=== PATIENT | female | born 1970 | race Caucasian/White ===

== ENCOUNTER → 2017-07-13 | Outpatient (CLI) | payer BC ==
[~2017-07-13] MED LIST: GADOBUTROL 10 MMOL/10 ML VIAL IV
== END | disposition home or self-care (01) ==
LOC: KCIC MRI 10:08
DX: S93.491A Sprain of other ligament of right ankle, initial encounter (principal); M79.89 Other specified soft tissue disorders; M25.471 Effusion, right ankle; X58.XXXA Exposure to other specified factors, initial encounter; Y93.89 Activity, other specified; Y92.89 Other specified places as the place of occurrence of the external cause; Y99.8 Other external cause status
CPT/HCPCS: 73721

== ENCOUNTER → 2018-06-07 | Outpatient (CLI) | payer BC ==
[2018-05-26 15:16] VITALS: BP 111/68
[~2018-06-07] MED LIST changes: +FENO145T30 PO; -GADOBUTROL 10 MMOL/10 ML VIAL IV; +Pantoprazole PO
--- NOTE | 2018-06-07 16:13 | KCIC ---
EXAM: MRI RIGHT ANKLE/HINDFOOT DATE: 06/07/2018 3:30 PM CLINICAL INDICATION: Right ankle pain, evaluate for recurrent ganglion cyst. COMPARISON: MRI ankle 07/13/2017. TECHNIQUE: Multiplanar, multisequence MR imaging of the right ankle was performed without IV contrast. FINDINGS: No significant ankle joint effusion. A small multiseptated ganglion is seen arising from the sinus tarsi given course accurate measurement is precluded although this measures approximately 3.9 x 1.2 cm arising laterally from the sinus tarsi to the level of the ankle joint, overlying the anterior tibiofibular ligament. The previously seen complex cystic structure extending posteriorly along the dorsal soft tissues has since been resected. Tendons: The peroneal tendons, lateral flexor tendons and extensor tendons are normal in signal and morphology without tenosynovitis. There is no abnormal subluxation/dislocation of the peroneal tendons. The Achilles tendon is normal in signal and morphology. No significant retrocalcaneal bursal distention. Ligaments: The deltoid, syndesmotic and lateral ankle ligaments are intact. The spring ligament is intact. Ligaments of the sinus tarsi are also grossly intact. The plantar fascia is normal in signal and morphology. No evidence of fracture or AVN. Type I accessory navicular. Mild chondral thinning with trace subchondral edema at the medial aspect of the talar dome-degenerative. The tarsal tunnel is normal in appearance without space-occupying lesion. IMPRESSION: 1. The previously seen dorsal-lateral soft tissue ganglion has since been resected 2. A new ganglion is seen arising from the sinus tarsi extending to the level of the anterolateral lateral ankle joint. 3. Ankle joint degenerative changes are seen with chondral thinning and subchondral edema at the medial aspect of the talar dome. Electronically signed by: Nick Garcias MD (06/07/2018 4:09 PM) [facility]-KCIC2
== END | disposition home or self-care (01) ==
LOC: KCIC MRI 14:48
PROVIDERS: ATTEND Orthopaedic Surgery Foot and Ankle Surgery
DX: M67.471 Ganglion, right ankle and foot (principal)
CPT/HCPCS: 73721

== ENCOUNTER → 2019-05-08 | Outpatient (CLI) | payer BC ==
[2018-05-26 15:16] VITALS: BP 111/68
--- NOTE | 2019-05-08 16:19 | KCIC ---
MRI study of the right ankle without contrast Clinical indications: History of 2 prior surgeries for ganglion cyst removal of the lateral side of the right ankle pain. Lateral right ankle pain. Possible recurrent ganglion cyst. TECHNIQUE: Noncontrast MRI sequences of the right ankle were performed in all 3 planes. FINDINGS: There is a complex multilobulated periarticular ganglion cyst just anterior and lateral to the talofibular portion of the mortise ankle joint. It measures 36 mm in vertical dimension and 12 mm in AP dimension and 15 mm in transverse dimension. More anteriorly, there is another periarticular ganglion cyst seen just lateral to the talonavicular joint. It measures 15 mm transversely and 6 mm in AP dimension and 15 mm in vertical dimension. There is a small focus of degenerative bone marrow edema of the first cuneiform bone adjacent to the navicular cuneiform joint compartment. No bone contusion or fracture or marrow infiltrative process is seen. Mild shallow longitudinal split tear of the peroneus brevis tendon is seen at the level of the lateral malleolus. There is mild tenosynovitis here. Mild tenosynovitis of the posterior tibialis tendon and flexor longus tendon is seen. These tendons are intact otherwise. The extensor tendons are intact without tenosynovitis. The Achilles tendon is intact. There is mild pre-Achilles bursitis present. Small plantar spur of the calcaneus is seen. Plantar aponeurosis is intact. No osseous tarsal coalition is seen. Sinus tarsi is unremarkable and the talocalcaneal and cervical ligaments are intact. The anterior/posterior tibiofibular ligaments and anterior/posterior talofibular ligaments and deltoid ligament and calcaneofibular ligament and spring ligament are intact. The flexor and extensor and peroneal retinacular ligaments are intact. IMPRESSION: 2 periarticular ganglion cysts are seen as discussed above. Shallow longitudinal split tear of the peroneus brevis tendon with mild tenosynovitis. Mild pre-Achilles bursitis. Achilles tendon is intact. Small plantar spur of the calcaneus. No bone marrow edema or soft tissue edema is seen here and the plantar fascia is intact. Electronically signed by: Gulshan Pisano MD (05/08/2019 4:16 PM) [facility]-KCIC2
== END | disposition home or self-care (01) ==
LOC: KCIC MRI 12:15
PROVIDERS: ATTEND Orthopaedic Surgery Foot and Ankle Surgery
DX: S96.811A Strain of other specified muscles and tendons at ankle and foot level, right foot, initial encounter (principal); M65.871 Other synovitis and tenosynovitis, right ankle and foot; M76.61 Achilles tendinitis, right leg; M77.31 Calcaneal spur, right foot; M67.471 Ganglion, right ankle and foot; X58.XXXA Exposure to other specified factors, initial encounter; Y93.89 Activity, other specified; Y92.89 Other specified places as the place of occurrence of the external cause; Y99.8 Other external cause status
CPT/HCPCS: 73721

== ENCOUNTER → 2019-11-14 | Outpatient (CLI) | payer BC ==
[2018-05-26 15:16] VITALS: BP 111/68
[~2019-11-14] MED LIST changes: +FENO145T3 PO; -FENO145T30 PO; +PROG200C10 PO
== END | disposition home or self-care (01) ==
LOC: LAB 13:48
PROVIDERS: ATTEND Internal Medicine Gastroenterology
DX: Z11.59 Encounter for screening for other viral diseases (principal)
CPT/HCPCS: 36415; 87635

== ENCOUNTER → 2019-11-17 | Day surgery (SDC) | payer BC ==
[~2019-11-17] MED LIST changes: +IV RINGERS,LACTATED 1000ML 1,000 ML IV SCH; +LIDOCAINE 2% PF 5 ML VIAL. ONE; +NITROGLYCERIN SUBLINGUAL 0.4 MG BOTTLE OF 25. SL PRN; +PROPOFOL 10 MG/ML (20ML) VIAL. IV ONE
[2019-11-17 10:45] VITALS: BP 119/78
--- NOTE | 2019-11-17 11:42 | EKG ---
[facility] [address] [place] [address] Test Date: 2019-11-17 Test Time: 10:54:33 Pat Name: HANK RUANO Department: Room: Gender: F [employer]: : 1970 Requested By: ANABELA SETHI Order Number: [id number] Reading MD: Jose Dubon Measurements Intervals [place] Rate: 54 P: 60 MI: 146 QRS: 55 QRSD: 82 T: 20 QT: 476 QTc: 453 Interpretive Statements SINUS RHYTHM NORMAL ECG Electronically Signed On 11-17-2019 13:41:19 CDT by Jose Dubon
--- NOTE | 2019-11-20 13:07 | PATHOLOGY ---
[facility] Accession Number: [id number] . 01 Material submitted: . PART A: duodenum - DUODENAL BX PART B: stomach - GASTRIC BX . 01 Clinical history: . Diarrhea . 02 Diagnosis: A. Duodenal biopsies: - No significant pathologic abnormalities. . B. Gastric biopsies, gastric body: - Superficial active chronic gastritis, mild to moderate, with Helicobacter organisms identified. . (JPM:declan; 11/20/2019) MBR 11/20/2019 1050 Local . 02 Comment: Sections of the duodenal biopsy reveal multiple segments of duodenal mucosa with focally prominent submucosal Aureliano's glands. Where best oriented, the mucosal villi show no sprue-like changes or significant inflammatory changes. . Sections of the gastric biopsy reveal segments of gastric body mucosa showing superficial, mild to moderate active chronic inflammation. A properly controlled immunoperoxidase stain for Helicobacter reveals numerous Helicobacter organisms. . (JPM:declan; 11/20/2019) . . Special stain performed: Immunoperoxidase stain for Helicobacter on B1 . 02 Electronically signed: . Zachary Erivn MD, Pathologist NPI- [id number] . 01 Gross description: . A. The specimen is received in formalin labeled "Basel, Parekh, duodenal BX" and consists of multiple fragments of pink-mercado tissue measuring 1.4 x 0.6 x 0.2 cm in aggregate which are entirely submitted in A1. . B. The specimen is received in formalin labeled "Basel, Parekh, gastric BX" and consists of multiple fragments of pink-mercado tissue measuring 1.1 x 0.6 x 0.2 cm in aggregate which are entirely submitted in B1. (ONELIA; 11/17/2019) JFQ/NELI 11/17/2019 1446 Local . 02 Pathologist provided ICD-10: K29.50, B96.81 . 02 CPT . 255323, [id number], [id number] Specimen Comment: A courtesy copy of this report has been sent to [phone], [phone] Specimen Comment: [id number] Specimen Comment: Report sent to / DR BOOKER Specimen Comment: A duplicate report has been generated due to demographic updates. Performed at: 01 [facility] [address] [address], [place] [id number] MD Kaden Roth MD Phone: [phone] Performed at: 02 [facility] [address] [place], [place] [id number] MD Zachary Ervin MD Phone: [phone]
== END | disposition home or self-care (01) ==
LOC: ENDOS 07:58
PROVIDERS: ATTEND Internal Medicine Gastroenterology
DX: R10.13 Epigastric pain (principal); K29.50 Unspecified chronic gastritis without bleeding; B96.81 Helicobacter pylori [H. pylori] as the cause of diseases classified elsewhere; J45.909 Unspecified asthma, uncomplicated; K31.89 Other diseases of stomach and duodenum; Z86.010 Personal history of colon polyps; Z83.3 Family history of diabetes mellitus; Z80.0 Family history of malignant neoplasm of digestive organs; Z87.891 Personal history of nicotine dependence; Z79.899 Other long term (current) drug therapy; Z98.890 Other specified postprocedural states; Z98.51 Tubal ligation status
CPT/HCPCS: 43239; 81025; 93005; J3490; J2704

== ENCOUNTER 2020-09-17 13:45 | Emergency (ER) | payer BC, OTHER ==
[~2020-09-17] VITALS: Ht 165.1 cm; Wt 96.0 kg
[~2020-09-17 13:45] MED LIST changes: -IV RINGERS,LACTATED 1000ML 1,000 ML IV SCH; -LIDOCAINE 2% PF 5 ML VIAL. ONE; -NITROGLYCERIN SUBLINGUAL 0.4 MG BOTTLE OF 25. SL PRN; -PROPOFOL 10 MG/ML (20ML) VIAL. IV ONE
[2020-09-17 14:34] LABS: BASO % 1 % (0-3); EOS # 0.2 x10^3/uL (0.0-0.7); EOS % 2 % (0-3); HEMATOCRIT 36.5 % (36.0-47.0); HEMOGLOBIN 12.5 g/dL (12.0-15.5); LYMPH # 2.7 x10^3/uL (1.0-4.8); LYMPH % 31 % (24-48); MEAN CORPUSCULAR HEMOGLOBIN 31 pg (25-35); MEAN CORPUSCULAR HGB CONC 34 g/dL (31-37); MEAN CORPUSCULAR VOLUME 91 fL (79-100); MONO # 0.5 x10^3/uL (0.0-1.1); MONO % 6 % (0-9); NEUT # 5.3 x10^3/uL (1.8-7.7); NEUT % 60 % (31-73); PLATELET COUNT 245 x10^3/uL (140-400); RED BLOOD COUNT 4.03 x10^6/uL (3.50-5.40); RED CELL DISTRIBUTION WIDTH 13.1 % (11.5-14.5); WHITE BLOOD COUNT 8.8 x10^3/uL (4.0-11.0)
[2020-09-17 14:47] LABS: CALCIUM 8.9 mg/dL (8.5-10.1); CREATININE 0.7 mg/dL (0.6-1.0); GFR 88.9; POTASSIUM 3.9 mmol/L (3.5-5.1)
--- NOTE | 2020-09-17 14:49 | RAD ---
XR CHEST 1V History: Reason: chest pain / Spl. Instructions: / History: Comparison: May 25, 2018 Findings: No consolidation or pleural effusion. Normal heart size. No pneumothorax. Impression: 1. No acute cardiopulmonary process. Electronically signed by: Thai Coon DO (09/17/2020 2:46 PM) [facility]
[2020-09-17 14:53] LABS: ALBUMIN 3.4 g/dL (3.4-5.0); ALBUMIN/GLOBULIN RATIO 0.9 (1.0-1.7); MAGNESIUM 1.8 mg/dL (1.8-2.4); TOTAL BILIRUBIN 0.3 mg/dL (0.2-1.0)
--- NOTE | 2020-09-17 15:39 | EKG ---
[facility] [address] [place] [address] Test Date: 2020-09-17 Test Time: 13:54:24 Pat Name: HANK RUANO Department: Room: Gender: F Office Machine Installer: : 1970 Requested By: ALYSSIA CAPELLAN Order Number: [id number] Reading MD: Measurements Intervals [place] Rate: 75 P: 41 [place]: 138 QRS: 9 QRSD: 84 T: 11 QT: 420 QTc: 472 Interpretive Statements SINUS RHYTHM NORMAL ECG RI6.02 No previous ECG available for comparison
[2020-09-17] MEDS ORDERED: CONTRAST GIVEN. MC PRN (16:00)
[2020-09-17] MEDS ORDERED: IOHEXOL 350 MG/ML 100 ML VIAL. IV ONE (16:00)
[2020-09-17 16:08] LABS: BILIRUBIN,URINE NEGATIVE (NEG); CLARITY,URINE CLEAR; COLOR,URINE YELLOW; NITRITE,URINE NEGATIVE (NEG); PROTEIN,URINE NEGATIVE (NEG-TRACE); UROBILINOGEN,URINE 0.2 mg/dL (0.2 mg/dL)
[2020-09-17 16:31] LABS: BACTERIA,URINE 0 /HPF (0-FEW); RBC,URINE 0 /HPF (0-2); WBC,URINE 0 /HPF (0-4)
--- NOTE | 2020-09-17 16:35 | RAD ---
PQRS Compliance Statement: One or more of the following individualized dose reduction techniques were utilized for this examinat ion: 1. Automated exposure control 2. Adjustment of the mA and/or kV according to patient size 3. Use of iterative reconstruction technique CTA CHEST 09/17/2020 3:57 PM INDICATION: Right-sided chest pain, shortness of air COMPARISON: None available TECHNIQUE: Axial CT images of the chest were obtained after the intravenous administration of nonioni c contrast. Coronal and sagittal reformats are provided. Maximum intensity projection images of the t horacic vasculature are provided. FINDINGS: The thyroid gland is normal in appearance. There are no pathologically enlarged axillary, mediastinal or hilar lymph nodes. The heart size is within normal limits. No significant pericardial effusion. T horacic aorta is normal in course and caliber. There is adequate opacification of the pulmonary arterial system. There there are no filling defects within the pulmonary arterial system to suggest acute or chronic pulmonary embolus. There are no suspicious solid noncalcified pulmonary nodules. There are no pulmonary infiltrates. The re are no pleural effusions. No pulmonary vascular congestion or pneumothorax. Visualized portions of the upper abdomen are within normal limits. No suspicious osseous lesions are visualized. IMPRESSION: There is no evidence for acute or chronic pulmonary embolism. Electronically signed by: Shilpi Kiser MD (09/17/2020 4:33 PM) [facility]
--- NOTE | 2020-09-17 16:47 | PHYS DOC ---
Past Medical History Past Medical History: Other Additional Past Medical Histor: myocardial bridge Past Surgical History: Cholecystectomy, Other Additional Past Surgical Histo: right ankle, cervical cyst; uterine ablation Smoking Status: Former Smoker Alcohol Use: Occasionally Drug Use: None General Adult EDM: Chief Complaint: CHEST WALL PAIN HPI: HPI: Patient is a 50 year old female who presented to ER for evaluation of right- sided chest pain, nonproductive cough for the last 4 days. Patient denies any fever or chills. Patient denies any pain in her left side of the chest. Patient denies any trouble breathing. Patient is not a smoker. Patient had an operation on her right ankle 3 months ago. Patient had no history of coronary disease, no history of blood clot disorder. Patient is not on any control medication. Review of Systems: Review of Systems: Constitutional: Denies fever or chills. [] Eyes: Denies change in visual acuity. [] HENT: Denies nasal congestion or sore throat. [] Respiratory: Denies cough or shortness of breath. [] Cardiovascular: Positive for right-sided chest pain, no edema GI: Denies abdominal pain, nausea, vomiting, bloody stools or diarrhea. [] : Denies dysuria. [] Musculoskeletal: Denies back pain or joint pain. [] Integument: Denies rash. [] Neurologic: Denies headache, focal weakness or sensory changes. [] Endocrine: Denies polyuria or polydipsia. [] Lymphatic: Denies swollen glands. [] Psychiatric: Denies depression or anxiety. [] Heart Score: C/O Chest Pain: Yes HEART Score for Chest Pain: HEART Score for Chest Pain Response (Comments) Value History Slighlty/Non-Suspicious 0 ECG Normal 0 Age >45 - < 65 1 Risk Factors No Risk Factors 0 Troponin < Normal Limit 0 Total 1 Risk Factors: Risk Factors: DM, Current or recent (<one month) smoker, HTN, HLP, family history of CAD, obesity. Risk Scores: Score 0 - 3: 2.5% MACE over next 6 weeks - Discharge Home Score 4 - 6: 20.3% MACE over next 6 weeks - Admit for Clinical Observation Score 7 - 10: 72.7% MACE over next 6 weeks - Early Invasive Strategies Current Medications: Current Medications Medications (Trade) Dose Ordered Sig/Siva Start Time Stop Time Status Last Admin Dose Admin Info (CONTRAST GIVEN -- Rx MONITORING) 1 each PRN DAILY PRN 09/17/20 16:00 09/19/20 15:59 Iohexol (Omnipaque 350 Mg/ml) 100 ml 1X ONCE 09/17/20 16:00 09/17/20 16:01 DC 09/17/20 16:14 100 ML Allergies: Allergies: Allergies Coded Allergies Type Severity Reaction Last Updated Verified No Known Drug Allergies 11/17/19 No Physical Exam: PE: Constitutional: Well developed, well nourished, no acute distress, non-toxic appearance. [] HENT: Normocephalic, atraumatic, bilateral external ears normal, oropharynx moist, no oral exudates, nose normal. [] Eyes: PERRLA, EOMI, conjunctiva normal, no discharge. [] Neck: Normal range of motion, no tenderness, supple, no stridor. [] Cardiovascular:Heart rate regular rhythm, no murmur [] Lungs & Thorax: Bilateral breath sounds clear to auscultation [] Abdomen: Bowel sounds normal, soft, no tenderness, no masses, no pulsatile masses. [] Skin: Warm, dry, no erythema, no rash. [] Back: No tenderness, no CVA tenderness. [] Extremities: No tenderness, no cyanosis, no clubbing, ROM intact, no edema. [] Neurologic: Alert and oriented X 3, normal motor function, normal sensory function, no focal deficits noted. [] Psychologic: Affect normal, judgement normal, mood normal. [] Current Patient Data: Labs: Laboratory Tests Test 09/17/20 14:10 09/17/20 15:50 White Blood Count 8.8 x10^3/uL (4.0-11.0) Red Blood Count 4.03 x10^6/uL (3.50-5.40) Hemoglobin 12.5 g/dL (12.0-15.5) Hematocrit 36.5 % (36.0-47.0) Mean Corpuscular Volume 91 fL (79-100) Mean Corpuscular Hemoglobin 31 pg (25-35) Mean Corpuscular Hemoglobin Concent 34 g/dL (31-37) Red Cell Distribution Width 13.1 % (11.5-14.5) Platelet Count 245 x10^3/uL (140-400) Neutrophils (%) (Auto) 60 % (31-73) Lymphocytes (%) (Auto) 31 % (24-48) Monocytes (%) (Auto) 6 % (0-9) Eosinophils (%) (Auto) 2 % (0-3) Basophils (%) (Auto) 1 % (0-3) Neutrophils # (Auto) 5.3 x10^3/uL (1.8-7.7) Lymphocytes # (Auto) 2.7 x10^3/uL (1.0-4.8) Monocytes # (Auto) 0.5 x10^3/uL (0.0-1.1) Eosinophils # (Auto) 0.2 x10^3/uL (0.0-0.7) Basophils # (Auto) 0.0 x10^3/uL (0.0-0.2) D-Dimer (Serena) 0.44 ug/mlFEU (0.00-0.50) Sodium Level 135 mmol/L (136-145) L Potassium Level 3.9 mmol/L (3.5-5.1) Chloride Level 106 mmol/L (98-107) Carbon Dioxide Level 24 mmol/L (21-32) Anion Gap 5 (6-14) L Blood Urea Nitrogen 17 mg/dL (7-20) Creatinine 0.7 mg/dL (0.6-1.0) Estimated GFR (Cockcroft-Gault) 88.9 BUN/Creatinine Ratio 24 (6-20) H Glucose Level 96 mg/dL (70-99) Calcium Level 8.9 mg/dL (8.5-10.1) Magnesium Level 1.8 mg/dL (1.8-2.4) Total Bilirubin 0.3 mg/dL (0.2-1.0) Aspartate Amino Transferase (AST) 23 U/L (15-37) Alanine Aminotransferase (ALT) 39 U/L (14-59) Alkaline Phosphatase 52 U/L (46-116) Troponin I Quantitative < 0.017 ng/mL (0.000-0.055) TQ-Ssb-T-Type Natriuretic Peptide 137 pg/mL (0-124) H Total Protein 7.0 g/dL (6.4-8.2) Albumin 3.4 g/dL (3.4-5.0) Albumin/Globulin Ratio 0.9 (1.0-1.7) L Lipase 124 U/L (73-393) Urine Collection Type Unknown Urine Color Yellow Urine Clarity Clear Urine pH 5.0 (<5.0-8.0) Urine Specific [place] 1.015 (1.000-1.030) Urine Protein Negative mg/dL (NEG-TRACE) Urine Glucose (UA) Negative mg/dL (NEG) Urine Ketones (Stick) Negative mg/dL (NEG) Urine Blood Negative (NEG) Urine Nitrite Negative (NEG) Urine Bilirubin Negative (NEG) Urine Urobilinogen Dipstick 0.2 mg/dL (0.2 mg/dL) Urine Leukocyte Esterase Negative (NEG) Urine RBC 0 /HPF (0-2) Urine WBC 0 /HPF (0-4) Urine Squamous Epithelial Cells Few /LPF Urine Bacteria 0 /HPF (0-FEW) Urine Mucus Slight /LPF Laboratory Tests 09/17/20 14:10 Laboratory Tests 09/17/20 14:10 Vital Signs: Vital Signs Date Time Temp Pulse Resp B/P (MAP) Pulse Ox O2 Delivery O2 Flow Rate FiO2 09/17/20 13:53 97.3 72 16 135/71 (92) 98 Room Air 97.3 EKG: EKG: EKG was done at 1354, heart rate of 75 bpm, normal sinus rhythm, no ST segment elevation. Normal axis. Radiology/Procedures: Radiology/Procedures: [][facility] [address] [place] [address] IMAGING REPORT Signed PATIENT: HANK RUANO ACCOUNT: [id number] : 1970 LOCATION: ER AGE: 50 SEX: F EXAM STATUS: REG ER ORD. PHYSICIAN: ALYSSIA CAPELLAN DO REASON: right side chest pain, soa PROCEDURE: CT ANGIOGRAPHY CHEST PQRS Compliance Statement: One or more of the following individualized dose reduction techniques were utilized for this examination: 1. Automated exposure control 2. Adjustment of the mA and/or kV according to patient size 3. Use of iterative reconstruction technique CTA CHEST 09/17/2020 3:57 PM INDICATION: Right-sided chest pain, shortness of air COMPARISON: None available TECHNIQUE: Axial CT images of the chest were obtained after the intravenous administration of nonionic contrast. Coronal and sagittal reformats are provided. Maximum intensity projection images of the thoracic vasculature are provided. FINDINGS: The thyroid gland is normal in appearance. There are no pathologically enlarged axillary, mediastinal or hilar lymph nodes. The heart size is within normal limits. No significant pericardial effusion. Thoracic aorta is normal in course and caliber. There is adequate opacification of the pulmonary arterial system. There there are no filling defects within the pulmonary arterial system to suggest acute or chronic pulmonary embolus. There are no suspicious solid noncalcified pulmonary nodules. There are no pulmonary infiltrates. There are no pleural effusions. No pulmonary vascular congestion or pneumothorax. Visualized portions of the upper abdomen are within normal limits. No suspicious osseous lesions are visualized. IMPRESSION: There is no evidence for acute or chronic pulmonary embolism. Electronically signed by: Penelope Matute MD (09/17/2020 4:33 PM) [facility] DICTATED and SIGNED BY: PENELOPE MATUTE MD DATE: 09/17/20 [id number] 0 Course & Med Decision Making: Course & Med Decision Making Pertinent Labs and Imaging studies reviewed. (See chart for details) Patient is a 50-year-old female who presented to ER due to right-sided chest pain over 4 days, CT scan of her chest did not show evidence of PE or infection, EKG was normal, cardiac exam was normal. Patient chest pain is noncardiac in nature. Patient will be discharged home. Dragon Disclaimer: Dragon Disclaimer: This electronic medical record was generated, in whole or in part, using a voice recognition dictation system. Departure Departure Impression: Primary Impression: Chest pain Additional Impression: Person under investigation for COVID-19 Disposition: 01 DC HOME SELF CARE/HOMELESS Condition: STABLE Referrals: GORDON BOOKER (PCP) FOLLOW UP WITH YOUR DOCTOR THIS WEEK FOR REEVALUATION Patient Instructions: Chest Pain (Nonspecific) Additional Instructions: Thank you for visiting our Emergency Department. We appreciate you trusting us with your care. If any additional problems come up don't hesitate to return to visit us. Please follow up with your primary care provider so they can plan additional care if needed and know about the problem that you had. If symptoms worsen come back to the Emergency Department. Any concerning symptoms that start such as chest pain, shortness of air, weakness or numbness on one side of the body, running high fevers or any other concerning symptoms return to the ER. ALYSSIA CAPELLAN DO Sep 17, 2020 16:47
[2020-09-17 17:22] VITALS: BP 108/63
--- NOTE | 2020-09-17 17:45 | EKG ---
[facility] [address] [place] [address] Test Date: 2020-09-17 Test Time: 15:48:31 Pat Name: HANK RUANO Department: Room: Gender: F Environmental Aide: : 1970 Requested By: ALYSSIA CAPELLAN Order Number: [id number] Reading MD: Measurements Intervals [place] Rate: 63 P: 54 ID: [id number] QRS: 16 QRSD: 82 T: 8 QT: 446 QTc: 460 Interpretive Statements SINUS RHYTHM NORMAL ECG RI6.02 No previous ECG available for comparison
--- NOTE | 2020-09-18 15:37 | NUR ---
IP: Attempt to contact pt concerning COVID results. No answer, left a voicemail to return the call.
== END 2020-09-17 17:25 | disposition home or self-care (01) ==
LOC: ER 13:45
DX: R07.89 Other chest pain (principal); Z20.822 Contact with and (suspected) exposure to COVID-19; R05 Cough; Z90.49 Acquired absence of other specified parts of digestive tract; Z98.890 Other specified postprocedural states; Z87.891 Personal history of nicotine dependence
CPT/HCPCS: 36415; 71045; 71275; 80053; 81001; 83690; 83735; 83880; 84484; 85025; 85379; 93005; 99285; C9803; Q9967; U0003